=== PATIENT | male | born 1965 | race Caucasian/White ===

== ENCOUNTER → 2020-06-15 09:25 | Outpatient (BNVA) | payer BC, SELFPAY | PROVIDERS: PCP Internal Medicine; Visit Provider Urology | DX: N36.8 Other specified disorders of urethra (principal); R31.9 Hematuria, unspecified | CPT/HCPCS: 81002 ==

== ENCOUNTER 2020-06-15 09:58 | Outpatient (REF) | payer BC, SELFPAY ==
[2020-06-15 12:11] LABS: Blood Urea Nitrogen 9 mg/dL (9-16); Estimated Glomerular Filt Rate > 60
== END 2020-06-15 09:59 | disposition home or self-care (01) ==
LOC: HO.10HDL 09:58
PROVIDERS: Visit Provider Urology
DX: R31.9 Hematuria, unspecified (principal)
CPT/HCPCS: 82565; 84520

== ENCOUNTER 2020-06-19 | Outpatient (REF) | payer BC, SELFPAY | END 2020-06-19 00:01 | disposition home or self-care (01) | LOC: HO.LNP | PROVIDERS: Visit Provider Urology | DX: R31.9 Hematuria, unspecified (principal) | CPT/HCPCS: 88112 ==

== ENCOUNTER 2020-07-04 15:32 | Outpatient (REF) | payer BC, SELFPAY ==
--- NOTE | 2020-07-04 15:35 | CT_ITS ---
EXAMINATION: CT ABDOMEN AND PELVIS WITHOUT AND WITH CONTRAST CLINICAL INFORMATION: Hematuria. COMPARISON: None TECHNIQUE: Multidetector volumetric imaging was performed of the abdomen and pelvis before and after the IV administration of 85 mL of Omnipaque 350 intravenous contrast. Sagittal and coronal reformatted images were obtained on the technologist's workstation. This CT examination was performed using dose optimization techniques as appropriate, variously including the following: *Automated exposure control *Adjustment of mA and/or kV according to patient size (this includes techniques or standardized protocols for targeted exams where dose is matched to indication/reason for exam; i.e. extremities or head) *Use of iterative reconstruction technique DLP: 455 mGy-cm FINDINGS: LUNG BASES: There is plate-like atelectasis in the left lung base. The rest of the lung bases are clear. The heart size is normal. LIVER, GALLBLADDER, AND BILIARY TREE: The liver is normal in size, shape, and attenuation. A 1.5 cm nonenhancing cyst segment VII/VIII. No additional lesions seen. There is no intrahepatic ductal dilatation. The gallbladder is contracted. PANCREAS: Unremarkable. SPLEEN: Unremarkable. ADRENAL GLANDS: Unremarkable. KIDNEYS AND URETERS: Both kidney nephrograms are normal size, shape and position. There are no renal calculi or hydronephrosis. There is opacification of bilateral kidney pelvises and ureters without any intraluminal filling defect or narrowing. BLADDER: The bladder is opacified with excreted urinary contrast. No radiopaque calculi seen. There is mild bladder wall thickening. GASTROINTESTINAL TRACT: There is moderate scattered stool seen throughout the colon without any significant distention. The small bowel loops are normal caliber. Appendix is normal caliber. No inflammatory process seen in the abdomen. ABDOMINAL WALL: No significant hernia is appreciated. LYMPH NODES: Normal. VASCULAR: Unremarkable. PELVIC VISCERA: The prostate gland is enlarged. The periprostatic fat planes are preserved. No abnormal pelvic or inguinal lymph nodes seen. There is a 2.9 x 1.9 cm cyst in the posterior urethra most likely bulbourethral cyst. It measured 2.7 cm on the previous CT abdomen exam 06/24/2012. OSSEOUS STRUCTURES: No lytic or sclerotic process seen. There is mild ventral spondylosis mid lumbar spine. CT/CT abdomen pelvis wo/w con IMPRESSION: No radiopaque urolith or hydroureteronephrosis. Mild bladder wall thickening. 2.9 cm cyst in the posterior urethra likely a bulbourethral cyst. Previously, it measured 2.7 cm. Mild constipation. Small hepatic cyst, stable compared to previous CT abdomen and pelvis 06/24/2012.
[2020-07-04] MEDS: iohexoL 350 MG/ML 100 ML INFUS..BTL IV (16:03)
== END 2020-07-04 15:33 | disposition home or self-care (01) ==
LOC: HO.CT 15:32
PROVIDERS: Visit Provider Urology
DX: R31.9 Hematuria, unspecified (principal)
CPT/HCPCS: 74178; Q9967

== ENCOUNTER 2020-12-04 11:30 | Day surgery (SDC) | payer BC, SELFPAY ==
--- NOTE | 2020-12-01 11:10 | P.CONAN_ITS ---
Documented by User: Mariella Nixon 12/01/20 11:11 HPI - Anesthesia Eval Consult details Narrative: 55yo M for Colonoscopy [facility] Active Problems Active Problems: All Active Problems (Updated 06/15/20 @ 09:41 by Jesus Hurtado III, MD) Urethral cyst (Acute) Hematuria (Acute) Past Medical History Medical History Arthritis Hematuria HTN (hypertension) Urethral cyst Family History Family History Family/Other Prostate cancer Surgical History Surgical History History of hernia repair History of removal of cyst Social History Social History Advance Directives: No Advance Directives Information Provided: Yes Meds Allergies Allergy/AdvReac Type Severity Reaction Status Date / Time No Known Allergies Allergy Unverified 11/29/20 14:03 [No Known Allergies*] Home Medications Medication Instructions Recorded Confirmed Last Taken Type losartan 100 mg tablet 100 mg PO DAILY 06/15/20 11/29/20 Unknown History Exam Exam Date and Time: December 01, 2020 111 Assessment and Plan Assessment Anesthesia Assessment: Chart Reviewed Documented by User: Mi Veras 12/04/20 12:25 [facility] Past Medical History Medical History Arthritis Hematuria HTN (hypertension) Urethral cyst Family History Family History Family/Other Prostate cancer Surgical History Surgical History History of hernia repair History of removal of cyst Social History Social History Advance Directives: No Advance Directives Information Provided: Yes Meds Allergies Allergy/AdvReac Type Severity Reaction Status Date / Time No Known Allergies Allergy Unverified 11/29/20 14:03 [No Known Allergies*] Home Medications Medication Instructions Recorded Confirmed Last Taken Type losartan 100 mg tablet 100 mg PO DAILY 06/15/20 11/29/20 Unknown History Exam Airway Mallampati Class: II TM Dist: >3cm Neck ROM: Full Heart: rrr Lungs: cta Assessment and Plan Assessment Anesthesia Assessment: Anesthesia Plan Discussed and Chart Reviewed Final Anesthetic Review NPO: Yes ASA Class: II Final Preanesthetic Review: No Changes in Pt Med Stat and Consent Obtained/Reviewed Patient Risk: Intermediate Procedure Risk: Intermediate Anesthetic Plan Anesthetic Plan: MAC: Disposition: Standard PACU
[2020-12-04 12:33] VITALS: BP 121/82; PULSE 78; RESP 16; TEMP 37; O2SAT 97; BMI 20.7
[2020-12-04] MEDS: Lactated Ringers 1,000 ML 100 ML IVCONT (12:43)
--- NOTE | 2020-12-04 15:09 | PM.OP ---
Brief Operative Note Date of Service: 12/04/20 Pre-op diagnosis: Screening Post-op diagnosis: other (Colon polyps) Procedure: Colonoscopy to the cecum with biopsies and removal of polyps Surgeon: Alonzo Nolasco Anesthesia: MAC Was an Line Assembly Utility Worker used for this Procedure?: No Estimated blood loss (mL): 3.0 Pathology: other (A. Transverse colon polyp B. Ascending colon polyp) Condition: stable Disposition: PACU
[2020-12-04 15:10] VITALS: BP 100/51; PULSE 86; RESP 16; TEMP 36.3; O2SAT 97
[2020-12-04 15:25] VITALS: BP 97/57; PULSE 68; RESP 18; O2SAT 96
[2020-12-04 15:40] VITALS: BP 100/63; PULSE 81; RESP 18; O2SAT 95
[2020-12-04 15:55] VITALS: BP 111/72; PULSE 64; RESP 18; O2SAT 98
--- NOTE | 2020-12-08 10:56 | OP_ITS ---
SURGEON: Alonzo Nolasco MD INDICATIONS: The patient presents for evaluation of colorectal cancer screening and personal history of tubular adenoma of the colon, as well as family history of colon cancer. Full consent has been obtained from him for this, including risks of bleeding and perforation. PREOPERATIVE DIAGNOSIS: POSTOPERATIVE DIAGNOSIS: PROCEDURE PERFORMED: Colonoscopy to cecum with biopsy and removal of polyps. ESTIMATED BLOOD LOSS: COMPLICATIONS: ANESTHESIA: Monitored anesthesia care. ASSISTANTS: SPECIMENS: PREOPERATIVE DIAGNOSES: Colorectal cancer screening, personal history of tubular adenomas, and family history of colon cancer. POSTOPERATIVE DIAGNOSES: Colorectal cancer screening, personal history of tubular adenomas, and family history of colon cancer, small colon polyps, diverticulosis and internal hemorrhoids. DESCRIPTION OF PROCEDURE: The patient was placed in the left lateral decubitus position. The digital rectal exam revealed no abnormalities. The Olympus video pediatric colonoscope was entered into the rectum and advanced easily to the cecum. Once in the cecum, I did identify normal-appearing cecal pouch with appendiceal orifice and a normal-appearing ileocecal valve. There was transillumination of light deep in the right lower quadrant. The entire cecum and ileocecal valve appeared normal. The scope was slowly withdrawn assessing all mucosal surfaces carefully. Preparation was excellent. In the ascending colon and transverse colon, were flat less than 5 mm polyps, which were each biopsied and completely removed with cold biopsy forceps. I did not visualize any other polyps, colitis, nor angiodysplasia. There was a mild amount of sigmoid diverticulosis and occasional diverticula noted in the ascending colon as well. In the rectum, scope was retroflexed visualizing internal hemorrhoids, but no other pathology. The rectal mucosa appeared normal. The scope was straightened out and withdrawn from the patient. He tolerated the procedure well and was returned to the recovery area in stable condition. IMPRESSION: 1. Small colon polyps, status post biopsy and removal. 2. Diverticulosis. 3. Internal hemorrhoids. PLAN: The results of biopsy will be checked. I would recommend a repeat colonoscopy in 5 years for further surveillance. He will otherwise see me on a p.r.n. basis. MD TIESHA Mancia/ANANT / [id number]
== END 2020-12-04 16:12 | disposition home or self-care (01) ==
PROVIDERS: PCP Internal Medicine; Visit Provider Internal Medicine
PROC: 0DJD8ZZ Inspection of Lower Intestinal Tract, Via Natural or Artificial Opening Endoscopic (ICD-10-PCS; CPT 45378; principal; 2020-12-04 12:40)
DX: Z12.11 Encounter for screening for malignant neoplasm of colon (principal); D12.3 Benign neoplasm of transverse colon; K63.5 Polyp of colon; K64.8 Other hemorrhoids; K57.30 Diverticulosis of large intestine without perforation or abscess without bleeding; I10 Essential (primary) hypertension; Z79.899 Other long term (current) drug therapy; Z86.010 Personal history of colon polyps; Z80.0 Family history of malignant neoplasm of digestive organs
CPT/HCPCS: 45380; 88305

== ENCOUNTER 2021-06-28 16:41 | Outpatient (REF) | payer BC, SELFPAY ==
[2021-06-28 17:23] LABS: Anion Gap 11 (12-20); Carbon Dioxide 29 mmol/L (22-29); Chloride 99 mmol/L (96-108); Potassium 4.1 mmol/L (3.3-5.1); Sodium 135 mmol/L (135-145)
[2021-06-28 17:51] LABS: Osmolality, Serum 290 mosm/kg (281-305)
[2021-06-28 18:57] LABS: Osmolality Urine 424 mosm/kg (373-1093)
== END 2021-06-28 16:42 | disposition home or self-care (01) ==
LOC: HO.LAB 16:41
PROVIDERS: PCP Internal Medicine; Visit Provider Internal Medicine
DX: E87.1 Hypo-osmolality and hyponatremia (principal)
CPT/HCPCS: 36415; 80051; 83930; 83935; 84300

== ENCOUNTER 2022-06-27 06:43 | Outpatient (REF) | payer BC, SELFPAY ==
[2022-06-27 11:23] LABS: MANUAL DIFF FLAG NO
[2022-06-27 11:41] LABS: Basophils Percent Auto 0.7 % (0-2); Eosinophils Absolute Auto 0.1 X10*3/uL (0.0-0.4); Hematocrit 39.3 % (42.0-52.0); Hemoglobin 13.1 g/dl (14.0-18.0); Imm Gran Abs Auto 0.01 X10*3/uL (0.00-0.03); Imm Gran Pct Auto 0.2 % (0.0-0.4); Lymphocytes Absolute Auto 1.8 X10*3/uL (1.2-4.9); Lymphocytes Percent Auto 39.2 % (20-40); Mean Corpuscular HGB Conc 33.3 g/dl (31.0-36.0); Mean Corpuscular Hemoglobin 30.3 pg (27.0-33.0); Mean Corpuscular Volume 90.8 fL (80.0-98.0); Mean Platelet Volume 9.6 fL (9.4-12.4); Monocytes Absolute Auto 0.6 X10*3/uL (0.1-1.2); Monocytes Percent Auto 12.2 % (2-11); Neutrophils Absolute Auto 2.1 x10*3/uL (2.0-8.3); Neutrophils Percent Auto 45.7 % (45-73); Platelet Count 220 X10*3/uL (160-400); Red Blood Count 4.33 X10*6/uL (4.60-5.80); Red Cell Distribution Width 11.7 % (11.0-16.0); White Blood Count 4.5 X10*3/uL (4.8-10.8)
[2022-06-27 12:09] LABS: Alanine Aminotransferase 23 U/L (0-40); Albumin Level 4.1 g/dL (3.5-5.0); Alkaline Phosphatase 53 U/L (39-117); Anion Gap 11 (12-20); Aspartate Amino Transferase 24 U/L (5-37); Bilirubin Direct < 0.2 mg/dL (0.0-0.5); Bilirubin Total 0.5 mg/dL (0.0-1.0); Blood Urea Nitrogen 9 mg/dL (9-16); Carbon Dioxide 27 mmol/L (22-29); Chloride 103 mmol/L (96-108); Cholesterol 207 mg/dL; Estimated Glomerular Filt Rate > 60; Glucose Fasting 106 mg/dL (60-99); HDL Cholesterol 57 mg/dL; LDL Cholesterol Calculated 107 mg/dl; Potassium 4.1 mmol/L (3.3-5.1); Sodium 137 mmol/L (135-145); Total Protein 6.7 g/dL (6.5-8.0); Triglycerides 217 mg/dL
[2022-06-27 12:16] LABS: Prostate Specific Antigen 1.47 ng/mL (<0.05-4.0)
== END 2022-06-27 06:44 | disposition home or self-care (01) ==
LOC: HO.HMGCLDS 06:43
PROVIDERS: PCP Internal Medicine; Visit Provider Internal Medicine
DX: Z00.00 Encounter for general adult medical examination without abnormal findings (principal); Z12.5 Encounter for screening for malignant neoplasm of prostate; R53.83 Other fatigue; E78.00 Pure hypercholesterolemia, unspecified
CPT/HCPCS: 36415; 80051; 80061; 80076; 82565; 82947; 84153; 84520; 85025

== ENCOUNTER 2023-07-01 06:31 | Outpatient (REF) | payer BC, SELFPAY ==
[2023-07-01 11:10] LABS: MANUAL DIFF FLAG NO
[2023-07-01 11:19] LABS: Basophils Percent Auto 0.6 % (0-2); Eosinophils Absolute Auto 0.1 X10*3/uL (0.0-0.4); Eosinophils Percent Auto 1.3 % (0-4); Hematocrit 40.5 % (42.0-52.0); Hemoglobin 13.4 g/dl (14.0-18.0); Imm Gran Abs Auto 0.04 X10*3/uL (0.00-0.03); Imm Gran Pct Auto 0.7 % (0.0-0.4); Lymphocytes Absolute Auto 1.8 X10*3/uL (1.2-4.9); Lymphocytes Percent Auto 33.8 % (20-40); Mean Corpuscular HGB Conc 33.1 g/dl (31.0-36.0); Mean Corpuscular Hemoglobin 30.6 pg (27.0-33.0); Mean Corpuscular Volume 92.5 fL (80.0-98.0); Mean Platelet Volume 9.5 fL (9.4-12.4); Monocytes Absolute Auto 0.7 X10*3/uL (0.1-1.2); Monocytes Percent Auto 12.8 % (2-11); Neutrophils Absolute Auto 2.8 x10*3/uL (2.0-8.3); Neutrophils Percent Auto 50.8 % (45-73); Platelet Count 290 X10*3/uL (160-400); Red Blood Count 4.38 X10*6/uL (4.60-5.80); Red Cell Distribution Width 11.9 % (11.0-16.0); White Blood Count 5.5 X10*3/uL (4.8-10.8)
[2023-07-01 11:39] LABS: Alanine Aminotransferase 24 U/L (0-40); Albumin Level 4.2 g/dL (3.5-5.0); Alkaline Phosphatase 50 U/L (39-117); Anion Gap 11 (12-20); Aspartate Amino Transferase 28 U/L (5-37); Bilirubin Direct 0.1 mg/dL (0.0-0.5); Bilirubin Total 0.3 mg/dL (0.0-1.0); Blood Urea Nitrogen 11 mg/dL (9-16); Calcium 9.6 mg/dL (8.4-10.2); Carbon Dioxide 28 mmol/L (22-29); Chloride 100 mmol/L (96-108); Estimated Glomerular Filt Rate > 60; Glucose Fasting 105 mg/dL (60-99); Sodium 135 mmol/L (135-145); Total Protein 7.2 g/dL (6.5-8.0)
[2023-07-01 12:29] LABS: Prostate Specific Antigen 1.97 ng/mL (<0.05-4.0)
== END 2023-07-01 06:32 | disposition home or self-care (01) ==
LOC: HO.HMGCLDS 06:31
PROVIDERS: PCP Internal Medicine; Visit Provider Internal Medicine
DX: Z12.5 Encounter for screening for malignant neoplasm of prostate (principal); R53.83 Other fatigue; E78.00 Pure hypercholesterolemia, unspecified
CPT/HCPCS: 36415; 80053; 80076; 84153; 85025

== ENCOUNTER 2024-07-12 12:50 | Outpatient (REF) | payer BC, SELFPAY ==
--- NOTE | ~2024-07-12 | XR_ITS ---
EXAMINATION: XR CHEST 2 VIEWS HISTORY: COUGH, R/O PNA COMPARISON: Comparison is made with the prior examination dated 07/21/2018. FINDINGS: PA and lateral views of the chest are submitted. The lungs are expanded and clear. There is no pleural effusion, pneumothorax, or pulmonary vascular congestion. The heart is normal in size. The bones are intact. XR/XR chest 2V IMPRESSION: No acute cardiopulmonary abnormality. Electronically signed by: Alonzo Ghotra MD 07/12/2024 03:03 PM [facility]
== END 2024-07-12 12:51 | disposition home or self-care (01) ==
LOC: HO.HMGCX 12:50
PROVIDERS: PCP Internal Medicine; Visit Provider Internal Medicine
DX: R09.89 Other specified symptoms and signs involving the circulatory and respiratory systems (principal)
CPT/HCPCS: 71046

== ENCOUNTER → 2024-07-12 13:04 | Outpatient (BNV) | payer BC, SELFPAY | PROVIDERS: PCP Internal Medicine; Visit Provider Radiology Diagnostic Radiology | DX: R05.9 Cough, unspecified (principal) | CPT/HCPCS: 71046 ==

== ENCOUNTER 2024-07-22 06:20 | Outpatient (REF) | payer BC, SELFPAY ==
--- OUTSIDE RECORDS SUMMARY | 2024-07-22 06:24 | XMS_ITS | Patient Health Record ---
Author Organization [facility] Address [address] [place] [address] Care Team Providers Care Race Engine Builder Name Role Phone Neal Foss MD Primary Care Provider Unavailab Alonzo Oquendo Unavailable [phone] REASON FOR REFERRAL No Information MEDICATIONS Medication SIG (Take, Route, Frequency, Duration) Notes Start Date End Date Status Losartan Potassium A ctive Multivitamin Adults Active sulfaSALAzine for his RA Activ e IMMUNIZATIONS Vaccine Route Administration Date Status Comme nts Influenza Unknown 03/23/2020 Administered SOCIAL HISTORY Tobacco Use: Social History Observation Description Date Details (start date - stop date) Never Smoker NA - NA Sex Assigned At : Social History Observation Description Sex Assigned At Unknown Tobacco Use/Smoking Question Answer Notes Patient is a nonsmoker Alcohol Screen Question Answer Notes Did you have a drink contain ing alcohol in the past year? Yes How often did you have a dri nk containing alcohol in the past year? 4 or more times a week (4 points) How many drinks did you have on a typical day when you were drinking in the past year? 5 or 6 drinks (2 points) Points 6 Interpretation Positive PROBLEMS Problem Type ICD Code Onset Dates Problem Status W/U Status Risk SNOMED Code Notes Problem Encounter for screening for malignant neoplasm of colon (Z12.11) Active confirmed 404799961 Problem Preprocedural examination (Z01.818) Active confirmed 033351586 Problem History of adenomatous polyp of colon (Z86.010) Active confirmed 120430043 Problem Diverticulosis of sigmoid colon (K57.30) Active confirmed Diverticulosis of sigmoid colon (712389788) PLAN OF TREATMENT Pending Test Test Name Order Date Pathology 12/04/2020 Future Test Test Name Order Date COLONOSCOPY 05/01/2017 COLONOSCOPY 11/16/2020 Insurance Providers Payer Name Payer Address Payer Phone Subscriber Number Group Number Insured Name Patient Relationship to Insured Coverage Start Date Coverage End Date [facility] [address] [place], [place] [id number] INDRA VICENTE Self - patient is the insured MEDICAL (GENERAL) HISTORY Medical History History ICD Code Hypertension Denies [place],DM,CVA,Lung disease,renal dise ase Rheumatoid arthritis Sarcoidosis--inactive--being observed Surgical History Surgery Date(Month/Year) Urethral cyst 2013 Biopsy right arm for sarcoidosis 2010 Right inguinal hernia repair 1999
[2024-07-22 10:11] LABS: MANUAL DIFF FLAG NO
[2024-07-22 10:20] LABS: Basophils Percent Auto 0.9 % (0-2); Eosinophils Absolute Auto 0.1 X10*3/uL (0.0-0.4); Eosinophils Percent Auto 1.7 % (0-4); Hematocrit 39.7 % (42.0-52.0); Hemoglobin 13.3 g/dl (14.0-18.0); Imm Gran Abs Auto 0.02 X10*3/uL (0.00-0.03); Imm Gran Pct Auto 0.4 % (0.0-0.4); Lymphocytes Absolute Auto 2.1 X10*3/uL (1.2-4.9); Lymphocytes Percent Auto 45.9 % (20-40); Mean Corpuscular HGB Conc 33.5 g/dl (31.0-36.0); Mean Corpuscular Hemoglobin 30.2 pg (27.0-33.0); Mean Corpuscular Volume 90.2 fL (80.0-98.0); Mean Platelet Volume 9.5 fL (9.4-12.4); Monocytes Absolute Auto 0.5 X10*3/uL (0.1-1.2); Monocytes Percent Auto 11.1 % (2-11); Neutrophils Absolute Auto 1.8 x10*3/uL (2.0-8.3); Platelet Count 225 X10*3/uL (160-400); Red Cell Distribution Width 12.1 % (11.0-16.0); White Blood Count 4.6 X10*3/uL (4.8-10.8)
[2024-07-22 10:38] LABS: Alanine Aminotransferase 31 U/L (0-40); Albumin Level 3.9 g/dL (3.5-5.0); Alkaline Phosphatase 53 U/L (39-117); Anion Gap 9 (12-20); Aspartate Amino Transferase 38 U/L (5-37); Bilirubin Total 0.4 mg/dL (0.0-1.0); Blood Urea Nitrogen 5 mg/dL (9-16); Calcium 8.5 mg/dL (8.4-10.2); Carbon Dioxide 27 mmol/L (22-29); Chloride 105 mmol/L (96-108); Cholesterol 141 mg/dL (<200); Estimated Glomerular Filt Rate > 60; Glucose Fasting 90 mg/dL (60-99); HDL Cholesterol 43 mg/dL (>40); LDL Cholesterol Calculated 63 mg/dL (<100); Potassium 3.8 mmol/L (3.3-5.1); Sodium 137 mmol/L (135-145); Total Protein 7.1 g/dL (6.5-8.0); Triglycerides 175 mg/dL (<150)
== END 2024-07-22 06:21 | disposition home or self-care (01) ==
LOC: HO.HMGCLDS 06:20
PROVIDERS: PCP Internal Medicine; Visit Provider Internal Medicine
DX: Z00.00 Encounter for general adult medical examination without abnormal findings (principal); Z12.5 Encounter for screening for malignant neoplasm of prostate; E78.5 Hyperlipidemia, unspecified
CPT/HCPCS: 36415; 80053; 80061; 84153; 85025

== ENCOUNTER 2024-08-26 14:49 | Outpatient (REF) | payer BC, SELFPAY ==
--- OUTSIDE RECORDS SUMMARY | 2024-08-26 18:19 | XMS_ITS | Patient Health Record ---
Author Organization [facility] Address [address] [place] [address] Care Team Providers Care Contour Grinder Name Role Phone Neal Foss MD Primary Care Provider Unavailab Alonzo Oquendo Unavailable [phone] Reason For Referral No Information Medications Medication SIG (Take, Route, Frequency, Duration) Notes Start Date End Date Status Losartan Potassium A ctive Multivitamin Adults Active sulfaSALAzine for his RA Activ e Immunizations Vaccine Route Administration Date Status Comme nts Influenza Unknown 03/23/2020 Administered Social History Tobacco Use: Social History Observation Description Date Details (start date - stop date) Never Smoker NA - NA Tobacco Use/Smoking Question Answer Notes Patient is [...] drinks (2 points) Points 6 Interpretation Positive Section Notes: Nonsmoker; 2-3 glasses of wi ne QD Nonsmoker; 2-3 glasses of wi ne QD Problems Problem Type SNOMED Code ICD Code Onset Dates Problem Status W/U Status Risk Notes Problem 445111303 Encounter for screening for malignant neoplasm of colon (Z12.11) Active confirmed Problem 112675268 History of adenomatous polyp of colon (Z86.010) Active confirmed Problem 021318077 Preprocedural examination (Z01.818) Active confirmed Problem Diverticulosis of sigmoid colon (763341036) Diverticulosis of sigmoid colon (K57.30) Active confirmed Plan Of Treatment Pending Test Test Name Order Date Pathology 12/04/2020 Future Test Test Name Order Date COLONOSCOPY 05/01/2017 COLONOSCOPY 11/16/2020 Insurance Providers Payer Name Payer Address Payer Phone Subscriber Number Group Number Insured Name Patient Relationship to Insured Coverage Start Date Coverage End Date [facility] [address] [place], [place] [id number] INDRA VICENTE Self - patient is the insured Medical (General) History Medical History History ICD Code Hypertension Denies ID,DM,CVA,Lung disease,renal dise ase Rheumatoid arthritis Sarcoidosis--inactive--being observed Surgical History Surgery Date(Month/Year) Urethral cyst 2013 Biopsy right arm for sarcoidosis 2010 Right inguinal hernia repair 1999
== END 2024-08-26 14:50 | disposition home or self-care (01) ==
LOC: HO.HMGCX 14:49
PROVIDERS: PCP Internal Medicine; Visit Provider Internal Medicine
DX: M25.561 Pain in right knee (principal)
CPT/HCPCS: 73560

== ENCOUNTER → 2024-08-26 14:55 | Outpatient (BNV) | payer BC, SELFPAY | PROVIDERS: PCP Internal Medicine; Visit Provider Radiology Diagnostic Radiology | DX: M25.561 Pain in right knee (principal) | CPT/HCPCS: 73560 ==

== ENCOUNTER 2024-12-30 14:13 | Outpatient (AMB) | payer BC, SELFPAY ==
--- NOTE | 2024-12-30 14:12 | MHC.PC.OV ---
Vital Signs 12/30/24 14:19 Height 5 ft 7.72 in Weight 147 lb 4 oz BMI 22.6 BP 138/54 L Blood Pressure Location Rt brachial Position Sitting Respiration 16 Pulse 75 Pulse Source Pulse Oximeter Temp 98.6 F Temp Source Temporal Artery Scan Pulse Oximetry (%) 96 Oxygen Delivery Method Room Air Intake Visit Reasons: establish care; hypertension Can Slider Required: No Accompanied by: Self / Same As Patient Allergies No Known Allergies (No Known Allergies*) Allergy (Verified 12/30/24 14:32) Medication List - Last Reconciled 12/30/24 by Jess Marie PA-C valsartan 160 mg PO DAILY Tobacco use date assessed: 12/30/24 Dental Screening Dental Screen Date: 12/30/24 Did you have a dental visit in the last 12 months?: Yes Did you have a dental problem in the last 6 months where you did not have access to dental care?: No Was dental information given to patient?: Patient has dentist HPI establish care; hypertension HPI Details The patient is a 59-year-old male presenting for a new patient to establish a new primary care provider, medication refill for his blood pressure medications and management of chronic conditions. The patient has a history of hypertension, initially diagnosed after a physical examination revealed elevated blood pressure readings. He was initially prescribed losartan, which was effective but caused a persistent cough, leading to a switch to valsartan 160 mg, which he currently takes. Despite medication, his blood pressure readings have been low, with a recent diastolic reading of 54 mmHg, raising concerns about potential diastolic dysfunction. The patient also has a history of anemia, noted during routine blood work, which is described as mild and chronic. He denies any symptoms such as black or bloody stools, suggesting no acute gastrointestinal bleeding. Additionally, the patient has experienced intermittent low white blood cell counts, which have normalized in the past without intervention. This condition is monitored with periodic blood tests. The patient has elevated triglycerides, attributed to dietary habits, with a level of 175 mg/dL. He has been advised to reduce intake of foods high in sugars and refined carbohydrates to manage this condition. Social History - Family Status: Lives with family, daughter is 30 years old and getting . - Activity Level: Appears active, no assistance needed at home, no recent falls. [facility] Medical History (Updated 12/30/24 @ 14:58 by Jess Marie PA-C) Preventative health care Hypertriglyceridemia Leukopenia Anemia Establishing care with new doctor, encounter for Low left ventricular mid-diastolic pressure Diastolic dysfunction COVID-19 vaccine series completed Urethral cyst Hematuria Arthritis HTN (hypertension) Surgical History Hx of colonoscopy History of removal of cyst History of hernia repair Family History Father High blood pressure Prostate cancer Mother Lung cancer Social History Housing: House Alcohol intake: current Alcohol intake frequency: a few times a week Patient Tobacco Use Status: Never used Tobacco service: No Current occupational status: employed Cognitive needs: No Hearing needs: No Vision needs: Yes (rx glasses and contacts ) Questionnaire PHQ-9 Over the last 2 weeks, how often have you been bothered by any of the following problems? 1. Little interest or pleasure in doing things: not at all 2. Feeling down, depressed, or hopeless: not at all 3. Trouble falling or staying asleep, or sleeping too much: not at all 4. Feeling tired or having little energy: not at all 5. Poor appetite or overeating: not at all 6. Feeling bad about yourself - or that you are a failure or have let yourself or your family down: not at all 7. Trouble concentrating on things, such as reading the newspaper or watching television: not at all 8. Moving or speaking so slowly that other people could have noticed. Or the opposite - being so fidgety or restless that you have been moving around a lot more than usual: not at all 9. Thoughts that you would be better off or of hurting yourself in some way: not at all Total score: 0 Depression Screening Interpretation: Negative Depression Screening Done: Yes 04832 - PHQ-9 Billing: Yes Source: Developed by Drs. Alonzo Taylor, Kori Frank, Rg Beltrán and colleagues, with an educational brian from [employer]. Thrive Questionnaire Date Thrive assessed: 12/30/24 I am a: Patient What is your living situation today?: I have a steady place to live Within the past 12 months, did the food you bought not last and you didn't have the money to get more?: Never true Within the past 12 months, did you worry whether your food would run out before you got money to buy more?: Never true Do you have trouble paying for medicines?: No Do you have trouble getting transportation to medical appointments?: No Do you have trouble paying your heating and electricity bill?: No Do you have trouble taking care of your child, family member or friend?: No Do you have trouble with day-to-day activities such as bathing, preparing meals, shopping, managing finances, etc.?: No Are you currently unemployed and looking for a job?: No Are you interested in more education?: No Please select the resources that you would like help with: None Currently or been in a relationship where the following occur: No concerns reported THRIVE Score: 0 AUDIT C Alcohol Use Questionnaire (AUDIT-C) 1. How often do you have a drink containing alcohol?: 4 or more times a week 2. How many drinks containing alcohol do you have on a typical day when you are drinking?: 1 or 2 3. How often do you have six or more drinks on one occasion?: Never Total Score: 4 Score Reviewed/Action Taken: No REBEKAH-7 AMB Questionnaire REBEKAH-7 Date REBEKAH - 7 assessed: 12/30/24 Feeling nervous, anxious, or on edge: 0 = Not at all Not being able to stop or control worryin = Not at all Worrying too much about different things: 0 = Not at all Trouble relaxin = Not at all Being so restless that it is hard to sit still: 0 = Not at all Becoming easily annoyed or irritable: 0 = Not at all Feeling afraid as if something awful might happen: 0 = Not at all Total REBEKAH-7 score (0-4 normal; 5-9 mild; 10-14 moderate; 15-21 severe): 0 Source: Developed by Drs. Alonzo Taylor, Kori Frank, Rg Beltrán and colleagues, with an educational brian from [employer]. REBEKAH-7 Assessment Billing REBEKAH-7 Assessment Tool: REBEKAH-7 Assessment 50556 Review of Systems Const Details: - Cardiovascular: Denies chest pain, denies leg swelling. - Respiratory: Denies cough, denies shortness of breath. - Gastrointestinal: Denies black or bloody stools. - Neurological: Denies dizziness. Physical exam (Primary Care) Vital Signs: Last Vital Signs Temp 98.6 F 12/30/24 14:19 Pulse 75 12/30/24 14:19 Resp 16 12/30/24 14:19 BP 138/54 L 12/30/24 14:19 Pulse Ox 96 12/30/24 14:19 Oxygen Delivery Method Room Air 12/30/24 14:19 Care Plan Goal for BP management: <140/90 at Goal BMI result Body Mass Index 22.6 normal bmi Tobacco/Smoking Status: Tobacco use Status Tobacco use date assessed 12/30/24 12/30/24 14:18 Patient Tobacco Use Status Never used Tobacco 12/30/24 14:27 PHQ-9: PHQ-9 Score PHQ-9: Total score 0 12/30/24 14:18 Depression Screening Interpretation: Negative Thrive Assessment: Date of Thrive Assessment Date Thrive assessed 12/30/24 12/30/24 14:18 Currently or been in a relationship where the following occur: No concerns reported Const Other: Appearance: Alert. Oriented X3. No acute distress. Head: Normal external exam. Normocephalic. Atraumatic. Eyes: Pupils are equal, round, and reactive to light. Extraocular movements intact. Conjunctiva and sclera normal. Eyelids normal. Ears: External auditory canal normal. Tympanic membranes normal. Throat: Pharynx normal. Uvula midline. Moist mucous membranes. Neck: Normal inspection. Neck supple. Full range of motion. No adenopathy. Thyroid Normal. No meningeal signs. No neck mass noted. Cardiovascular: Normal heart rate and rhythm. Heart sound normal. No murmurs noted. Pulses normal throughout. Respiratory: No respiratory distress. Painless inspiration. Breath sounds normal. No wheezes/rales/rhonchi noted. Chest nontender. No accessory muscle usage noted or decreased air movement noted. Abdomen: Soft and nontender. Bowel sounds normal in all 4 quadrants. No distention noted. No organomegaly noted. No visible injury noted. Back: No costovertebral angle tenderness. Full range of motion noted. Skin: Skin warm and dry. Normal skin color. Normal skin turgor. No rashes/lesions/lacerations noted. Extremities: No lower extremity edema. Extremities exhibit normal range of motion. Extremities nontender. Neuro: Oriented X 3. No motor deficit. No sensory deficit. Reflexes normal. Results Reviewed Results Reviewed: - Labs: Mild anemia, low white blood cell count, elevated triglycerides at 175 mg/dL, normal prostate-specific antigen. Coding Level of Care Code New Pt Level 4 (50601) Complex EM visit Add On G2211 Diagnoses Establishing care with new doctor, encounter for Z76.89 HTN (hypertension) I10 Anemia D64.9 Leukopenia D72.819 Hypertriglyceridemia E78.1 Low left ventricular mid-diastolic pressure R94.30 [facility] health care Z00.00 Additional Codes PHQ-9 - 39457 - PHQ-9 Billing: Yes ([id number]) REBEKAH-7 Assessment Billing - REBEKAH-7 Assessment Tool: REBEKAH-7 Assessment 69333 ([id number]) Assessment & Plan Assessment & Plan (1) Establishing care with new doctor, encounter for: Code(s): Z76.89 - Persons encountering health services in other specified circumstances Category: Medical (2) HTN (hypertension): Code(s): I10 - Essential (primary) hypertension Category: Medical Plan: The patient is advised to continue monitoring blood pressure at home due to low diastolic readings, which may indicate diastolic dysfunction. An ultrasound of the heart is recommended to assess for potential diastolic dysfunction, and follow-up with cardiology will be considered if abnormalities are found. (3) Anemia: Code(s): D64.9 - Anemia, unspecified Category: Medical Plan: The patient's mild chronic anemia will be monitored with periodic blood tests, as no acute symptoms are present. (4) Leukopenia: Code(s): D72.819 - Decreased white blood cell count, unspecified Category: Medical Plan: The patient's intermittent low white blood cell count will continue to be monitored with routine blood work, as it has normalized in the past without intervention. (5) Hypertriglyceridemia: Code(s): E78.1 - Pure hyperglyceridemia Category: Medical Plan: Dietary modifications are recommended to reduce triglyceride levels, including decreasing intake of sugars and refined carbohydrates. (6) Low left ventricular mid-diastolic pressure: Code(s): R94.30 - Abnormal result of cardiovascular function study, unspecified Category: Medical Plan: Patient with low diastolic pressure. No murmur heard on exam although will order echocardiogram to further evaluate. Patient denies any acute symptoms. (7) Preventative health care: Code(s): Z00.00 - Encounter for general adult medical examination without abnormal findings Category: Medical Plan: Will order A1c and TSH to evaluate for diabetes or thyroid disease. Plan Plan Patient was informed and verbally consented to the use of an ambient scribe for clinic note documentation during this visit. 1. Hypertension The patient is advised to continue monitoring blood pressure at home due to low diastolic readings, which may indicate diastolic dysfunction. An ultrasound of the heart is recommended to assess for potential diastolic dysfunction, and follow-up with cardiology will be considered if abnormalities are found. 2. Anemia The patient's mild chronic anemia will be monitored with periodic blood tests, as no acute symptoms are present. 3. Low White Blood Cell Count The patient's intermittent low white blood cell count will continue to be monitored with routine blood work, as it has normalized in the past without intervention. 4. Elevated Triglycerides Dietary modifications are recommended to reduce triglyceride levels, including decreasing intake of sugars and refined carbohydrates. I discussed with the patient the importance of monitoring blood pressure at home due to the low diastolic readings, which may suggest diastolic dysfunction. We agreed on obtaining an ultrasound of the heart to further evaluate this concern, and I explained that if any abnormalities are detected, a referral to cardiology will be made. I also provided dietary advice to help manage elevated triglycerides, emphasizing the reduction of sugars and refined carbohydrates. Orders: Orders Hemoglobin A1c Today Z00.00 - Encounter for general adult medical examination without abnormal findings TSH reflex Free T4 Today Z00.00 - Encounter for general adult medical examination without abnormal findings CA echo transthoracic complete Today I51.89 - Other ill-defined heart diseases, R94.30 - Abnormal result of cardiovascular function study, unspecified Medications: New valsartan 160 mg PO DAILY 90 tabs 3RF I10 - Essential (primary) hypertension Patient Instructions: - Monitor blood pressure at home regularly and report any unusual symptoms. - Follow dietary recommendations to reduce triglyceride levels, focusing on reducing sugars and refined carbohydrates. - Await contact for scheduling an ultrasound of the heart and follow up as advised.
[2024-12-30 14:19] VITALS: BP 138/54; PULSE 75; RESP 16; TEMP 37; O2SAT 96; BMI 22.6
--- OUTSIDE RECORDS SUMMARY | 2024-12-30 14:26 | XMS_ITS | Patient Health Record ---
Author Organization [facility] Address [address] [place] [address] Care Team Providers Care Gift Packer Name Role Phone Neal Foss MD Primary Care Provider Unavailab Alonzo Oquendo Unavailable [phone] Reason For Referral No Information Medications Medication [...] Problem Status W/U Status Risk Notes Problem [id number] Encounter for screening for malignant neoplasm of colon (Z12.11) Active confirmed Problem 307722102 History of adenomatous polyp of colon (Z86.010) Active confirmed Problem 720423057 Preprocedural examination (Z01.818) Active confirmed Problem Diverticulosis of sigmoid colon (340979605) Diverticulosis of sigmoid colon (K57.30) Active confirmed Plan Of Treatment Pending Test Test Name Order Date Pathology 12/04/2020 Future Test Test Name Order Date COLONOSCOPY 05/01/2017 COLONOSCOPY 11/16/2020 Insurance Providers Payer Name Payer Address Payer Phone Subscriber Number Group Number Insured Name Patient Relationship to Insured Coverage Start Date Coverage End Date [facility] [address] [place], [place] [id number] INDRA VICENTE Self - patient is the insured Medical (General) History Medical History History ICD Code Hypertension Denies [place],DM,CVA,Lung disease,renal dise ase Rheumatoid arthritis Sarcoidosis--inactive--being observed Surgical History Surgery Date(Month/Year) Urethral cyst 2013 Biopsy right arm for sarcoidosis 2010 Right inguinal hernia repair 1999
== END 2024-12-30 14:48 | disposition home or self-care (01) ==
LOC: HO.HMCSH 14:13
PROVIDERS: PCP Internal Medicine; Visit Provider Physician Assistant Medical
DX: Z76.89 Persons encountering health services in other specified circumstances (principal); I10 Essential (primary) hypertension; D64.9 Anemia, unspecified; D72.819 Decreased white blood cell count, unspecified; E78.1 Pure hyperglyceridemia; R94.30 Abnormal result of cardiovascular function study, unspecified; Z00.00 Encounter for general adult medical examination without abnormal findings

== ENCOUNTER → 2024-12-30 14:13 | Outpatient (BNVA) | payer BC, SELFPAY | PROVIDERS: PCP Internal Medicine; Visit Provider Physician Assistant Medical | DX: Z00.00 Encounter for general adult medical examination without abnormal findings (principal); I11.9 Hypertensive heart disease without heart failure; D64.9 Anemia, unspecified; D72.819 Decreased white blood cell count, unspecified; E78.1 Pure hyperglyceridemia; R94.30 Abnormal result of cardiovascular function study, unspecified; Z76.89 Persons encountering health services in other specified circumstances | CPT/HCPCS: 96127 ==

== ENCOUNTER → 2025-02-02 14:58 | Outpatient (REF) | payer BC, SELFPAY ==
--- NOTE | 2025-02-02 15:01 | CA_ITS ---
Transthoracic Echocardiogram Patient (Last, First, Middle): Adilson Collins J Gender: Male Date of : 1965 Age: 59 Procedure Date: 02/02/2025 Procedure Type: Transthoracic Echocardiogram Location: OP Height: 170.18 cm Weight: 66.68 kg BSA: 1.77 m2 Heart Rate: bpm BP: 138 / 54 mmHg Knife Cutter: DAVIDA Referring MD: Jess Marie PA-C Health Data Analyst: Pratik Francois MD Symptoms: I51.89 - Other ill-defined heart diseases Study Quality: Good ECG Rhythm: Sinus Conclusions: - 1. Normal LV ejection fraction of 60 65% with grade 1 diastolic dysfunction 2. Mild aortic regurgitation 3. Mildly dilated ascending aorta at 4.3 cm 4. No gross pericardial effusion Findings Left Ventricle Normal left ventricular size, thickness, and systolic function. The visually estimated ejection fraction is between 60-65%. Spectral Doppler is indicative of an impaired relaxation filling pattern. E/E prime ratio is <8, consistent with normal filling pressures. Evidence suggests grade I (mild) diastolic dysfunction. Right Ventricle Normal right ventricular cavity size and systolic function. Atria The left atrium is likely dilated. There is no evidence of interatrial shunt. The right atrium is normal in size. Aortic Valve There is mild calcification of the aortic valve. There is mild thickening of the aortic valve. There is no aortic valve stenosis. There is mild aortic valve regurgitation. Mitral Valve There is mild anterior mitral leaflet thickening. There is trace mitral valve regurgitation. There is no mitral valve stenosis. Pulmonic Valve The pulmonic valve is likely normal. There is trace to mild pulmonic valve regurgitation. Tricuspid Valve Normal tricuspid valve structure. Tricuspid regurgitation envelope is inadequate for calculation of right ventricular systolic pressure. Normal right atrial pressure. Great Vessels The pulmonary artery was not well visualized. There is mild dilatation of the ascending aorta measuring 4.30 cm. Venous The inferior vena cava is normal in size and collapses greater than 50% with inspiration. Pericardium/Pleural There is no evidence of pericardial effusion. Prior Study Comparison No prior study available for comparison. Measurements 2D Linear Measurements IVSd: 1.00 0.6-0.9/0.6-1.0 cm LVIDd: 5.21 3.9-5.3/4.2-5.9 cm LVIDd Index: 2.94 2.4-3.2/2.2-3.1 cm/m2 LVIDs: 3.47 2.0-3.6 cm LVPWd: 0.96 0.7-1.1 cm LA Diam: 4.00 2.7-3.8/3.0-4.0 cm LAIDs Index: 2.26 1.5-2.3 cm/m2 LV Mass: 236.43 67-162/88-224 g LV Mass Index: 133.58 43-95/49-115 g/m2 LVOT Diam: 2.60 3.0+(-)1.3 cm 2D Systolic Function EF 4C: 64.10 >55% EF 2C: 53.80 >55% EF BiP: 60.30 >55% Mitral Valve MV Pk E: 0.42 MV PK A: 0.53 MV Decel Time: 264.00 E/A: 0.80 E'Lateral: 8.05 E'Medial: 4.46 E/E' Med: 9.50 E/E' Lat: 5.20 PHT: 77.00 MVA PHT: 2.86 Decel Day: 1.60 Aortic Valve AoV Pk Marcelino: 1.45 AoV Mn Marcelino: 1.02 AoV VTI: 0.28 AoV Pk Grad: 8.00 Aov Mn Grad: 5.00 CHUCK Cont.VTI: 3.62 AI Pk Marcelino: 3.49 AI Day: 2.35 LVOT LVOT Pk Marcelino: 0.95 LVOT Mn Marcelino: 0.68 LVOT VTI: 0.19 LVOT Pk Grad: 4.00 LVOT Mn Grad: 2.00 LVOT Diam: 2.60 LVOT Area: 5.31 Diastolic Function MV Pk E: 0.42 MV Pk A: 0.53 E/A: 0.80 E'Medial: 4.46 E/E' Med: 9.50 E' Laterial: 8.05 E/E' Lat: 5.20 Right Ventricle TAPSE (mm): 24.80 TVS' Marcelino: 13.80 Tricuspid Valve RA Press: 3.00 Great Vessels Aorta Sinus of Valsalva: 4.20 2.0-3.[address] Ridge: 3.55 1.7-3.4 cm Ao Asc: 4.30 2.1-3.4 cm Ao Arch: 3.30 Updated in Other Vendor System with Status of Final Pratik Francois MD electronically signed on 02/03/2025 10:36:20 AM with status of Final
--- OUTSIDE RECORDS SUMMARY | 2025-02-02 15:04 | XMS_ITS | Patient Health Record ---
Author Organization [facility] Address [address] [place] [address] Care Team Providers Care Entry Table Operator Name Role Phone Prudence (RETIRED) Neal BROWN Primary Care Provider Unavailable Alonzo Nolasco Unavailable [phone] Reason For Referral No Information Medications Medication [...] Problem Status W/U Status Risk Notes Problem [id number] Encounter for screening for malignant neoplasm of colon (Z12.11) Active confirmed Problem 302898219 History of adenomatous polyp of colon (Z86.010) Active confirmed Problem 318316024 Preprocedural examination (Z01.818) Active confirmed Problem Diverticulosis of sigmoid colon (733608378) Diverticulosis of sigmoid colon (K57.30) Active confirmed Plan Of Treatment Pending Test Test Name Order Date Pathology 12/04/2020 Future Test Test Name Order Date COLONOSCOPY 05/01/2017 COLONOSCOPY 11/16/2020 Insurance Providers Payer Name Payer Address Payer Phone Subscriber Number Group Number Insured Name Patient Relationship to Insured Coverage Start Date Coverage End Date [facility] [address] [place], [place] [id number] INDRA VICNETE Self - patient is the insured Medical (General) History Medical History History ICD Code Hypertension Denies [place],DM,CVA,Lung disease,renal dise ase Rheumatoid arthritis Sarcoidosis--inactive--being observed Surgical History Surgery Date(Month/Year) Urethral cyst 2013 Biopsy right arm for sarcoidosis 2010 Right inguinal hernia repair 1999
== END ==
LOC: HO.CARD 14:58
PROVIDERS: PCP Internal Medicine; Visit Provider Physician Assistant Medical
DX: R94.30 Abnormal result of cardiovascular function study, unspecified (principal); I51.89 Other ill-defined heart diseases
CPT/HCPCS: 93306

== ENCOUNTER → 2025-02-02 15:01 | Outpatient (BNV) | payer BC, SELFPAY | PROVIDERS: PCP Internal Medicine; Visit Provider Internal Medicine Cardiovascular Disease | DX: I35.1 Nonrheumatic aortic (valve) insufficiency (principal); I35.8 Other nonrheumatic aortic valve disorders; I37.1 Nonrheumatic pulmonary valve insufficiency; I77.810 Thoracic aortic ectasia | CPT/HCPCS: 93306 ==

== ENCOUNTER 2025-05-26 13:19 | Outpatient (AMB) | payer BC, SELFPAY ==
--- NOTE | 2025-05-26 13:26 | A.OFFVIS_ITS ---
Vital Signs 05/26/25 13:29 Height 5 ft 7 in Weight 143 lb 4.807 oz BMI 22.4 BP 138/78 Blood Pressure Location Lt brachial Position Sitting Pulse 87 Pulse Source Monitor Intake Visit Reasons: [employer]/Marie/HTN/Cardioegaly Allergies No Known Allergies (No Known Allergies*) Allergy (Verified 12/30/24 14:32) Medication List - Last Reconciled 05/26/25 by Wilton Aldrich MD No Known Home Meds HPI Comments Details: Adilson has been referred for evaluation regarding an abnormal echocardiogram. A recent echocardiogram had shown mild ascending aortic dilatation leading to this referral. Patient himself does not have any known cardiac issues including coronary disease, myocardial infarction or cardiomyopathy. Within limits of his activity, he does not have any specific cardiac symptoms. 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 History of hypertension going back many years and he has taken valsartan. During PCP visit, apparently blood pressure was in the lower side and hence he is currently not taking it. Today's blood pressure is slightly high but home blood pressures are in the 120s. [facility] Medical History (Updated 05/26/25 @ 15:00 by Wilton Aldrich MD) Pulmonic valve regurgitation Tricuspid valve regurgitation Aortic valve regurgitation Mitral valve regurgitation Aortic root dilation Enlarged LA (left atrium) Preventative health care Hypertriglyceridemia Leukopenia Anemia Establishing care with new doctor, encounter for Low left ventricular mid-diastolic pressure Diastolic dysfunction COVID-19 vaccine series completed Urethral cyst Hematuria Arthritis HTN (hypertension) Surgical History Hx of colonoscopy History of removal of cyst History of hernia repair Family History Father High blood pressure Prostate cancer Mother Lung cancer Social History Housing: House Alcohol intake: current Alcohol intake frequency: a few times a week Patient Tobacco Use Status: Never used Tobacco service: No Current occupational status: employed Cognitive needs: No Hearing needs: No Vision needs: Yes (rx glasses and contacts ) Review of Systems Const Denies weakness ENT Denies dizziness Card Denies chest pain, Denies chest pain with activity, Denies syncope, Denies rapid heart rate, Denies pedal edema, Denies edema, Denies leg edema, Denies lightheadedness, Denies palpitations, Denies dyspnea, Denies dyspnea on exertion and Denies orthopnea Resp Denies cough, Denies dyspnea and Denies dyspnea on exertion GI Denies hematochezia and Denies change in stool character Musc Denies abnormal gait, Denies muscle cramps, Denies muscle weakness, Denies numbness, Denies radiating pain into limb and Denies tingling Neuro Denies abnormal gait, Denies dizziness, Denies syncope, Denies numbness, Denies tingling and Denies weakness Endo Denies palpitations Physical Exam Vital Signs: Last Vital Signs Pulse 87 05/26/25 13:29 BP 138/78 05/26/25 13:29 BMI result Body Mass Index 22.4 Const General: comfortable and no acute distress Orientation/consciousness: patient oriented x3 HEENT Other: Unremarkable Head: Yes normal to inspection Neck Neck: Yes normal visual inspection Chest Chest palpation & inspection: normal inspection of the chest Resp Auscultation: clear to auscultation bilaterally Cardio Palpation: normal PMI Heart sounds: S1 normal heart sound present, S2 normal heart sound present, no gallops, no murmurs and no rubs GI Palpation (GI): Soft to palpation Back/Spine/Pelvis Other: unremarkable Skin General skin exam: no rashes or lesions noted Neuro General: patient oriented x3 Extrem General: Yes normal to inspection Psych Mental Status: mental status grossly normal Office Procedures EKG Details: EKG with underlying sinus rhythm at 87/Min; PVCs; possible left atrial enlar gement; nonspecific ST-T [place]; [place] [id number], Complete Assessment & Plan Assessment & Plan (1) Ascending aorta dilatation: Code(s): I77.810 - Thoracic aortic ectasia Category: Medical Plan: In the recent echocardiogram, ascending aortic size 4.3 cm. We discussed about this today. At the current size, no specific interventions. Mainly blood pressure management. We will need to monitor this periodically. (2) PVC (premature ventricular contraction): Code(s): I49.3 - Ventricular premature depolarization Category: Medical Plan: EKG has PVCs but he has got no symptoms. Echocardiogram shows preserved LVEF and there was no evidence of any cardiomyopathy. We will screen him for coronary disease with coronary CTA. (3) HTN (hypertension): Code(s): I10 - Essential (primary) hypertension Category: Medical Plan: Has been on valsartan in the past but not taking it these days because of low blood pressure readings. Today's reading is slightly high but he has been checking them at home and closely with the 120s. We will continue to monitor for now. Plan Discussion Notes I had a detailed discussion with the patient regarding the findings on his recent echocardiogram. I explained that his aorta, the main artery from the heart, is mildly enlarged at 4.3cm. I clarified that while this requires monitoring, it is not at a size that is considered a large aneurysm and the risk of rupture is very low. We discussed the paramount importance of strict blood pressure control to minimize stress on the aortic wall, with a target of approximately 120 mmHg systolic. I outlined the surveillance plan, which includes a repeat echocardiogram in 6 months to assess for any change in size. I also explained the finding of irregular heartbeats (PVCs) and the need to investigate for underlying causes like coronary artery blockages. I informed him we will proceed with a cardiac CT scan, which will dually serve to evaluate his coronary arteries and provide further detail on his aorta. I reassured him that he can continue his current activities, including running, but should avoid activities involving significant straining and holding his breath, such as very heavy weightlifting. The patient understood the findings and the proposed plan. Patient was informed and verbally consented to the use of an ambient scribe for clinic note documentation during this visit. Orders: Orders CT Cardiac Coronary Angio Today I25.10 - Atherosclerotic heart disease of [place] coronary artery without angina pectoris, I71.9 - Aortic aneurysm of unspecified site, without rupture Basic Metabolic Panel Today I77.810 - Thoracic aortic ectasia Patient Instructions: - Your recent heart ultrasound showed that your main artery, the aorta, is slightly wider than normal. - This is not an immediate danger, but we will monitor it periodically. - We will schedule you for a cardiac CAT scan to get a more detailed look at your aorta and to check for any blockages in the arteries of your heart. - It is very important to keep your blood pressure controlled. - Please check your blood pressure at home and aim for the top number to be around 120. - Contact the office if your blood pressure is consistently in the 130s or 140s at home, as you may need to restart medication. - You can continue your normal activities, including work and running. - Avoid activities that involve intense straining while holding your breath, like lifting very heavy weights. Coding Level of Care Code New Pt Level 4 (46551) Complex visit Add On G2211 Diagnoses Ascending aorta dilatation I77.810 PVC (premature ventricular contraction) I49.3 HTN (hypertension) I10 CPT Codes EKG - CPT: 62666-[id number], Complete ([id number])
[2025-05-26 13:29] VITALS: BP 138/78; PULSE 87; BMI 22.4
== END 2025-05-26 14:02 | disposition home or self-care (01) ==
LOC: HO.HCS 13:20
PROVIDERS: PCP Internal Medicine; Visit Provider Internal Medicine
DX: I77.810 Thoracic aortic ectasia (principal); I49.3 Ventricular premature depolarization; I10 Essential (primary) hypertension
CPT/HCPCS: 93010; 99204

== ENCOUNTER → 2025-05-26 13:19 | Outpatient (BNVA) | payer BC, SELFPAY | PROVIDERS: PCP Internal Medicine; Visit Provider Internal Medicine | DX: I10 Essential (primary) hypertension (principal); I49.3 Ventricular premature depolarization; I77.810 Thoracic aortic ectasia | CPT/HCPCS: 93005 ==